=== PATIENT | male | born 1990 | race Hispanic/Latino ===

== ENCOUNTER 2019-01-07 18:59 | Emergency (ER) | payer BC, SELFPAY ==
[2019-01-07] MEDS ORDERED: Morphine 4 MG/ML VIAL ONE (19:17)
[2019-01-07] MEDS ORDERED: Ondansetron PF 4 MG/2 ML Vial ONE (19:17)
[2019-01-07 19:22] LABS: #Basophils 0.1 thou/uL (0.0-0.2); #Eosinphils 0.1 thou/uL (0.0-0.7); #Lymphocytes 4.4 thou/uL (1.20-3.40); #Monocytes 0.9 thou/uL (0.11-0.59); #Neutrophils 10.6 thou/uL (1.40-6.50); %Basophils 0.5 % (0.0-1.0); %Eosinophils 0.9 % (0.0-10.0); %Lymphocytes 27.3 % (21.0-51.0); %Monocytes 5.7 % (0.0-10.0); %Neutrophils 65.6 % (42.0-75.0); Hemoglobin 15.7 g/dL (14.0-18.0); Mean Corpuscular HGB CONC 34.7 g/dL (32.0-36.0); Mean Corpuscular Hemoglobin 28.9 pg (27.0-31.0); Mean Corpuscular Volume 83.4 fL (78.0-98.0); Mean Platelet Volume 8.3 fL (7.4-10.4); Platelet Count 309 thou/uL (130-400); RBC Distribution Width 12.5 % (11.5-14.5); Red Blood Cell (RBC) Count 5.44 mill/uL (4.70-6.10); White Blood Cell (WBC) Count 16.1 thou/uL (4.8-10.8)
[2019-01-07 19:44] LABS: ALT (SGPT) 80 U/L (8-55); AST (SGOT) 90 U/L (5-34); Albumin 4.6 g/dL (3.5-5.0); Alkaline Phosphatase 84 U/L (40-150); Anion Gap 15 mmol/L (10-20); BUN (Urea Nitrogen) 11 mg/dL (8.9-20.6); Bilirubin, Total 0.4 mg/dL (0.2-1.2); Calc. Creatinine Clearance 0 mL/min (70-130); Carbon Dioxide 25 mmol/L (22-29); Chloride 106 mmol/L (98-107); Estimated GFR-MDRD Greater than 90; Globulin 3.5 g/dL (2.4-3.5); Glucose 103 mg/dL (70-105); Protein, Total 8.1 g/dL (6.0-8.3); Sodium 142 mmol/L (136-145)
[2019-01-07 19:46] LABS: Acetaminophen Less than 6.0 mcg/mL (10.0-30.0); Alcohol Less than 10 mg/dL (Less than 10); Salicylate Less than 8.0 mg/dL (15.0-30.0)
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
--- NOTE | 2019-01-07 21:09 | CT ---
CT CHEST, ABDOMEN AND PELVIS WITH IV CONTRAST: 01/07/19 Trauma protocol was followed. CT CHEST: Lung mendieta are clear. No evidence of effusion or pneumothorax. No infiltrate or contusion. Mediastin um unremarkable. No evidence of rib fracture. Thoracic spine appears unremarkable. IMPRESSION: No evidence of acute chest injury. CT ABDOMEN AND PELVIS: Liver, spleen, pancreas, adrenal glands and kidneys unremarkable. No evidence of solid organ injury. Bowel loops unremarkable. Bladder is mildly distended and is intact. No free fluid in the abdomen or pelvis. Lumbar vertebrae appear intact. Pelvis appears intact. IMPRESSION: No acute abdominal injury. CT THORACIC AND LUMBAR SPINE: Thoracic and lumbar vertebrae maintain normal height and alignment. No evidence of compression defor mity. No evidence of vertebral body fracture. IMPRESSION: No evidence of thoracic or lumbar spine fractures. Findings relayed to Dr. Cárdenas. POS: [facility]
== END 2019-01-07 20:27 | disposition home or self-care (01) ==
LOC: ERS 18:59
DX: S20.211A Contusion of right front wall of thorax, initial encounter (principal); S80.11XA Contusion of right lower leg, initial encounter; S00.81XA Abrasion of other part of head, initial encounter; S00.01XA Abrasion of scalp, initial encounter; S50.311A Abrasion of right elbow, initial encounter; M79.645 Pain in left finger(s); V29.9XXA Motorcycle rider (driver) (passenger) injured in unspecified traffic accident, initial encounter
CPT/HCPCS: 70450; 71260; 74177; 80053; 80307; 85025; 96374; 96375; J2270; J2405

== ENCOUNTER 2021-04-05 23:51 | Emergency (ER) | payer BC, SELFPAY | END 2021-04-06 02:34 | disposition home or self-care (01) | LOC: ERS 23:51 | DX: S00.83XA Contusion of other part of head, initial encounter (principal); F10.129 Alcohol abuse with intoxication, unspecified; Y04.0XXA Assault by unarmed brawl or fight, initial encounter | CPT/HCPCS: 70450; 70486; 72125 ==